=== PATIENT | male | born 1965 | race Caucasian/White ===

== ENCOUNTER 2022-12-25 20:09 | Inpatient (IN) | payer OTHER ==
[2022-12-25 20:33] VITALS: BMI 29.1
[2022-12-25] MEDS ORDERED: ACETAMINOPHEN 325 MG TABLET (FP) PO PRN (21:26)
[2022-12-25] MEDS ORDERED: POLYETHYLENE GLYCOL (HEALTHYLAX) 3350 17 GM PACKET PO PRN (21:26)
[2022-12-25] MEDS ORDERED: IBUPROFEN 400 MG TABLET (FP) PO PRN (21:26)
[2022-12-25] MEDS ORDERED: guaiFENesin 200 MG/10 ML 10 ML UNIT-DOSE CUPS PO PRN (21:26)
[2022-12-25] MEDS ORDERED: P-EPHED 60MG/TRIPROLIDI 2.5MG TABLET PO PRN (21:26)
[2022-12-25] MEDS ORDERED: MAGNESIUM HYDROX 2400MG/30ML ORAL SUSPENSION 30 ML CUP PO PRN (21:26)
[2022-12-25] MEDS ORDERED: MAG HYDROX/AL HYDROX/SIMETH 30 ML UNIT-DOSE CUP PO PRN (21:26)
[2022-12-25] MEDS ORDERED: LOPERAMIDE HCL 2 MG CAPSULE PO PRN (21:26)
[2022-12-25] MEDS ORDERED: BENZOCAINE/MENTHOL (CHLORASEPTIC ) LOZENGE MM PRN (21:26)
[2022-12-26] MEDS: MELATONIN 5 MG TABLETS PO SCH ×2 (02:31→23:27)
[2022-12-26] MEDS: THIAMINE HCL 100 MG TABLET (FP) PO SCH ×2 (02:31→23:27)
[2022-12-26] MEDS: PRENATAL VITAMINS W/ FOLIC ACID TABLET (FP) PO SCH (09:57)
[2022-12-26 14:23] LABS: HEMATOCRIT 41.8 % (35.4-49); HEMOGLOBIN 14.2 GM/dL (11.7-16.9); MCH 35.7 pg (25.7-33.7); MEAN PLT VOLUME 8.4 fl (7.5-11.1); PLATELET COUNT 180 10^3/uL (134-434); RBC 3.98 M/mm3 (4.00-5.60); RDW 13.3 % (11.9-15.9); WHITE BLOOD COUNT 5.9 K/mm3 (4.0-10.0)
[2022-12-26 14:55] LABS: CALCIUM 8.9 mg/dL (8.5-10.1)
[2022-12-26 14:56] LABS: BLOOD UREA NITROGEN 16.6 mg/dL (7-18)
[2022-12-26 14:59] LABS: CREATININE 1.1 mg/dL (0.55-1.3)
[2022-12-26 15:01] LABS: BILIRUBIN,TOTAL 0.8 mg/dL (0.2-1); TOT PROT 6.6 g/dl (6.4-8.2)
[2022-12-27 09:06] VITALS: BP 110/72; PULSE 94; RESP 18; TEMP 97.6
[2022-12-27] MEDS: PRENATAL VITAMINS W/ FOLIC ACID TABLET (FP) PO SCH (10:16)
== END 2022-12-27 11:05 | disposition other institution (70) | DRG 775 ==
LOC: YASAS 20:09 → Y6N 12-26 01:54
PROVIDERS: ADMIT Allergy & Immunology; ATTEND Surgery
PROC: HZ2ZZZZ Detoxification Services for Substance Abuse Treatment (ICD-10-PCS; principal; 2022-12-26)
DX: F10.20 Alcohol dependence, uncomplicated (principal); F17.210 Nicotine dependence, cigarettes, uncomplicated; R73.9 Hyperglycemia, unspecified; R60.0 Localized edema; Z28.310 Unvaccinated for COVID-19; Z28.9 Immunization not carried out for unspecified reason
CPT/HCPCS: 36415; 80053; 83036; 85027; 86780; 87811; 93005; 93010; C9803-CS; U0003; U0005